=== PATIENT | male | born 1945 | race Caucasian/White ===

== ENCOUNTER 2022-06-23 11:18 | Emergency (ER) | payer OTHER ==
[~2022-06-23] VITALS: Ht 170.2 cm; Wt 68.0 kg
--- NOTE | 2022-06-23 11:20 | NUR ---
Patient is awake, minimally verbal, respiration: easy, non-labored, even and symmetrical. He is moving all his extremities, follows simple commands with a official court interpreter, skin is warm and dry. Calm and cooperative at the moment.
--- NOTE | 2022-06-23 11:31 | NUR ---
Urinal at bedside, pending urine sample. Patient is resting comfortably on gurney with eyes closed. NAD.
[2022-06-23 11:38] LABS: HEMATOCRIT 39.1 % (36.7-47.1); MEAN CORPUSCULAR HEMOGLOBIN 31.9 uug (23.8-33.4); MEAN CORPUSCULAR VOLUME 94.9 fL (73.0-96.2); PLATELET COUNT (AUTO) 148 K/uL (152-348)
[2022-06-23 11:55] LABS: ALANINE AMINOTRANSFERASE 8 U/L (16-63); ALKALINE PHOSPHATASE 105 U/L (50-136); ASPARTATE AMINOTRANSFERASE 7 U/L (15-37); BILIRUBIN,DIRECT 0.1 mg/dL (0.0-0.2); BILIRUBIN,TOTAL 0.4 mg/dL (0.2-1.0); CARBON DIOXIDE 32 mmol/L (21-32); CHLORIDE 105 mmol/L (98-107); CREATININE 1.2 mg/dL (0.6-1.3); GLUCOSE 194 mg/dL (74-106); POTASSIUM 4.3 mmol/L (3.5-5.1); TOTAL PROTEIN, SERUM 6.6 g/dL (6.4-8.2); UREA NITROGEN, BLOOD 23 mg/dL (7-18)
[2022-06-23 12:06] LABS: ACETAMINOPHEN < 2.0 ug/mL (10-30)
[2022-06-23 12:09] LABS: ETHANOL < 3 MG/DL (0-0)
--- NOTE | 2022-06-23 12:34 | NUR ---
Patient is for discharge back to his longterm per Dr Galvan. Urine can be sent to lab if available per . BLS ambulance [id number].
--- NOTE | 2022-06-23 12:43 | NUR ---
Pt ate 70% of lunch. Safety measures in place. Will continue to monitor.
--- NOTE | 2022-06-23 12:46 | NUR ---
Patient ambulated to the bathroom (located behind nurses' station) from room 3 with steady gait.
--- NOTE | 2022-06-23 12:54 | NUR ---
With a agricultural consultant, this patient said that he wants to sit on a chair and drink his juice for now. Wet diaper was removed. Street clothes were placed in a plastic belonging bag, pending ambulance tutorial laboratory supervisor.
--- NOTE | 2022-06-23 14:14 | NUR ---
Pt d/c back to [facility] via [facility]. SBAR report given to EMT.
== END 2022-06-23 14:15 ==
LOC: ER 11:18
DX: R45.1 Restlessness and agitation (principal); F03.911 Unspecified dementia, unspecified severity, with agitation
CPT/HCPCS: 36415; 85025; A4663; C1758; G0480